=== PATIENT | male | born 1970 ===

== ENCOUNTER 2020-10-28 07:14 | Outpatient (CLI) | payer OTHER ==
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
[2020-10-28 09:32] LABS: Blood Urea Nitrogen 11 mg/dL (9-20)
--- NOTE | 2020-10-28 09:51 | Magnetic Resonance Report ---
MRI cervical spine without contrast INDICATION: Dementia TECHNIQUE: Axial and sagittal images FINDINGS: Alignment appears normal. Craniocervical junction appears normal. No cord signal abnormalit y. C2-C3: Normal C3-C4: Posterior disc osteophyte and uncovertebral degenerative change. No significant neuroforaminal narrowing. C4-C5: Posterior disc osteophyte and uncovertebral degenerative change. Mild left neuroforaminal narr owing. C5-C6: Uncovertebral degenerative change and disc osteophyte. No significant neuroforaminal narrowing . C6-C7 and C7-T1 show no spinal canal narrowing or neuroforaminal narrowing. IMPRESSION: Mild discogenic degenerative changes seen throughout spine. Please see above level by level descripti on. Signer Name: Kory Morfin MD Signed: 10/28/2020 9:47 AM Workstation Name: [id number]
--- NOTE | 2020-10-28 11:46 | Magnetic Resonance Report ---
MRI BRAIN WITHOUT CONTRAST INDICATION / CLINICAL INFORMATION: History provided is memory loss, dementia. TECHNIQUE: Multiplanar, multisequence MR images of the brain were obtained. Contrast: MultiHance: 18 mL administered intravenously. COMPARISON: None available. FINDINGS: BRAIN / INTRACRANIAL CONTENTS: Ventricles and cortical sulci are normal in size and configuration. Th ere is no indication of temporal lobe, frontal lobe or parietal lobe atrophy. There is no mass effect . No evidence of intracranial hemorrhage or extra-axial fluid collection is seen. No significant area s of abnormal brain parenchymal signal intensity are identified. There is no indication of remote cor tical infarction. Diffusion weighted scans are negative. There is no indication of acute ischemic inj ury. The brainstem and cerebellum have an unremarkable appearance. MIDLINE STRUCTURES:No abnormalities are seen to involve the pituitary gland. Pineal region has an unr emarkable appearance. CRANIOCERVICAL JUNCTION: No abnormalities are identified at the craniocervical junction. VASCULAR FLOW-VOIDS: Normal flow-voids are present within the major intracranial vessels. ORBITS: The orbits have an unremarkable appearance. SINUSES / MASTOIDS: There is no indication of inflammatory disease in the paranasal sinuses or mastoi d air cells. Following the administration of intravenous contrast enhancement of normal vascular structures is dem onstrated. No areas of abnormal contrast enhancement are identified. IMPRESSION: 1. No significant abnormality on MRI brain performed without and with intravenous contrast.. Signer Name: Mark Ramsey MD Signed: 10/28/2020 11:41 AM Workstation Name: [id number]
== END 2020-10-28 07:15 | disposition home or self-care (01) ==
LOC: EEVIPCON 07:14 → MRI 07:14
PROVIDERS: ATTEND Specialist
DX: M47.812 Spondylosis without myelopathy or radiculopathy, cervical region (principal); G95.9 Disease of spinal cord, unspecified; F02.80 Dementia in other diseases classified elsewhere, unspecified severity, without behavioral disturbance, psychotic disturbance, mood disturbance, and anxiety; G93.41 Metabolic encephalopathy; M25.78 Osteophyte, vertebrae; M48.02 Spinal stenosis, cervical region
CPT/HCPCS: 36415; 70250; 70553; 71045; 72141; 74018; 82565; 84520; A9575

== ENCOUNTER 2020-11-07 10:18 | Outpatient (CLI) | payer OTHER ==
--- NOTE | 2020-11-07 12:24 | Magnetic Resonance Report ---
MR thoracic spine wo con INDICATION / CLINICAL INFORMATION: BACK PAIN, difficulty walking. TECHNIQUE: Multisequence, multiplanar images of the thoracic spine were obtained. COMPARISON: None available. FINDINGS: ALIGNMENT: Normal alignment. VERTEBRAE:No aggressive osseous marrow signal. Vertebral body heights are preserved. SPINAL CORD: No abnormal cord signal. SPONDYLOSIS: No significant spinal canal or foraminal stenosis. PARASPINAL SOFT TISSUES: No significant abnormality. ADDITIONAL FINDINGS: None. IMPRESSION: No significant thoracic spine abnormality. Signer Name: Ranjit Gaviria MD Signed: 11/07/2020 12:20 PM Workstation Name: [id number]
--- NOTE | 2020-11-08 08:04 | Magnetic Resonance Report ---
MRI lumbar spine without contrast INDICATION: Difficulty walking TECHNIQUE: Axial sagittal images were performed. FINDINGS: Alignment appears normal. Conus appears normal. No marrow replacement process is seen. Ther e are bilateral renal cysts. L1-L2: Normal L2-L3: Facet hypertrophy. No spinal canal narrowing or neuroforaminal narrowing. L3-L4: Facet hypertrophy. No spinal canal narrowing or neuroforaminal narrowing. L4-L5: Disc desiccation with posterior central annular tear. No large disc herniation or severe neuro foraminal narrowing. L5-S1: No spinal canal narrowing or neuroforaminal narrowing. IMPRESSION: Central annular tear with disc desiccation L4-5. No large disc herniation is seen. Signer Name: Kory Morfin MD Signed: 11/07/2020 12:00 PM Workstation Name: [id number]
== END 2020-11-07 10:19 | disposition home or self-care (01) ==
LOC: MRI 10:18
PROVIDERS: ATTEND Specialist
DX: S34.104A Unspecified injury to L4 level of lumbar spinal cord, initial encounter (principal); S34.105A Unspecified injury to L5 level of lumbar spinal cord, initial encounter; N28.1 Cyst of kidney, acquired; M51.36 Other intervertebral disc degeneration, lumbar region; G95.9 Disease of spinal cord, unspecified; X58.XXXA Exposure to other specified factors, initial encounter; Y93.89 Activity, other specified; Y92.89 Other specified places as the place of occurrence of the external cause; Y99.8 Other external cause status
CPT/HCPCS: 72146; 72148